=== PATIENT | male | born 1995 | race Caucasian/White ===

== ENCOUNTER 2025-05-16 15:45 | Emergency (ER) | payer BC, SELFPAY ==
[2025-05-16 15:51] VITALS: BP 132/80; PULSE 89; TEMP 36.9; O2SAT 98; BMI 30.8
--- NOTE | 2025-05-16 16:28 | PC.NURSE ---
area cleansed and PA at bedside for assessment
--- NOTE | 2025-05-16 16:30 | XR_ITS ---
[facility] [place] [id number] Patient Name: KARMA BATES MRN: [id number] date: 1995 Sex: M Assigned Patient Location: ER Current Patient Location: ER Accession/Order Number: [id number] Exam Date: 05/16/2025 16:42 Report Date: 05/16/2025 17:10 At the request of: KJ CHEN Procedure: XR tibia fibula RT 2V XR tibia fibula RT 2V 05/16/2025 4:58 PM SIGNS AND SYMPTOMS: ^Laceration, eval for foreign o ^Y PROTOCOL: Frontal and lateral radiographs of the right tibia and fibula COMPARISON: None FINDINGS: There is a soft tissue defect along the medial aspect of the right lower leg adjacent to the mid shaft of the tibia. No fracture. No abnormal radiopaque foreign body. The visualized right knee and right ankle are intact. XR/XR tibia fibula RT 2V IMPRESSION: There is a soft tissue defect along the medial aspect of the right lower leg adjacent to the mid shaft of the tibia. No fracture. No abnormal radiopaque foreign body. Impression dictated by: Deejay Medina M.D. 05/16/2025 5:10 PM Dictation Location: [place] [id number] Electronically authenticated by: [id number] Y Date: 05/16/2025 17:10
[2025-05-16] MEDS: LIDOCAINE HCL 1% 100 MG/10 ML MDV INJ (16:41)
[2025-05-16] MEDS: DIPHTH,PERTUSS(ACELL),TET VAC 0.5 ML SYRINGE IM (16:41)
--- NOTE | 2025-05-16 16:45 | ED_ITS ---
HPI HPI - General Adult General Chief complaint: Wound/Laceration Stated complaint: LACERATION ON R CALF Time Seen by Provider: 05/16/25 16:26 Source: patient Mode of arrival: walk-in Limitations: no limitations History of Present Illness HPI narrative: Patient is a 29-year-old male that presented to the emergency department with complaints of laceration to the medial side of his right lower extremity/calf after he was using a sledgehammer to break up a toilet to easily remove it from his basement. On arrival he states the bleeding has been controlled. He is not up-to-date on his tetanus. He did not have any pain with ambulation. Related Data Previous Rx's ?Medication ?Instructions ?Recorded cephalexin 500 mg capsule 500 mg PO BID 7 days #14 cap s 05/16/25 Allergies Allergy/AdvReac Type Severity Reaction Status Date / Time No Known Drug Allergies Allergy Verified 05/16/25 15:50 Opioid HPI Opioid Management Most Recent Opioid Data: Last Pain Scale 2 Today, 15:51 Review of Systems ROS Status of ROS 10 or more systems reviewed and unremark able except as noted in history and below PFSH PFSH Social History Little interest or pleasure in doing things: not at all Feeling down, depressed, or hopeless: not at all Exam Narrative Exam Narrative: General: No distress, age-appropriate Skin: Warm, dry, no pallor. No rash. 2.5 cm laceration to the medial aspect of over the right lower leg Head: Normocephalic, atraumatic. Neck: Supple, non-tender. Eye: Pupils are equal, round and EOMI. No scleral icterus. Ears, Nose, Mouth, and Throat: No nasal mucosal hypertrophy. Oral mucosa is moist, no posterior oropharynx erythema, uvula is mid-line Cardiovascular: Regular Rate and Rhythm without murmur, gallop or rub. Respiratory: No accessory muscle use or respiratory distress. Chest Wall: no tenderness Back: No midline thoracic or lumbar vertebral tenderness. Musculoskeletal: Full ROM of all extremities, no calf or popliteal tenderness. Right lower extremity medial side midway down the lower leg there is approximate ly 2.5 cm laceration, wound is hemostatic. Neurological: A&O x4. No cranial nerve dysfunction observed. No truncal ataxia. Moves all extremities. Sensation intact. Psychiatric: Cooperative and interactive. Normal mood and affect. Constitutional Vital Signs, click to edit/add: Last Vital Signs Temp 98.4 F 05/16/25 15:51 Pulse 89 05/16/25 15:51 Resp 20 05/16/25 15:51 BP 132/80 05/16/25 15:51 Pulse Ox 98 05/16/25 15:51 Documenting provider has reviewed patient's vital signs: yes Course Vital Signs Vital signs: Vital Signs Temperature 98.4 F 05/16/25 15:51 Pulse Rate 89 05/16/25 15:51 Respiratory Rate 20 05/16/25 15:51 Blood Pressure 132/80 05/16/25 15:51 Pulse Oximetry 98 05/16/25 15:51 Temperature 98.4 F 05/16/25 15:51 Pulse Rate 89 05/16/25 15:51 Respiratory Rate 05/16/25 15:51 Blood Pressure 132/80 05/16/25 15:51 Pulse Oximetry 98 05/16/25 15:51 Medical Decision Making MDM Narrative Medical decision making narrative: Patient is a 29-year-old male that presented to the emergency department with a 2.5 cm laceration to the medial right lower leg. Steady nonantalgic gait on arrival. The laceration came from a piece of toilet that he was disassembling with a sledgehammer and the piece flew and hit his leg. On exam patient is in no distress, there is some mild venous oozing on exam. No gross contamination on inspection of the wound. The wound is approximately 2.5 cm and will require a multilayer layer repair. Subcutaneous fat observed in the wound, no foreign objects. X-ray right tib-fib ordered and reviewed and interpreted by myself as negative for radiopaque objects. No fracture. Wound thoroughly cleansed and irrigated and repaired with 3?0 Vicryl for the subcutaneous layer and 3-0 Prolene for the superficial layer. See procedure note. Tetanus was updated as patient could not remember the last time he had a booster. I did discuss activity modification given the location of the wound to prevent dehiscence. Patient sits for the most part at his job. Patient given wound care instructions and return precautions. a dressing was placed on the wound. I did discharge patient with a course of Keflex x 7 days and instructions to follow-up with his primary care provider for removal of sutures in 10 to 14 days. Differential Diagnosis Differential Diagnosis: Leg laceration, foreign body Imaging Data Right Tib-Fib Xray: Attestation: I have reviewed the pertinent imaging results. Radiologist's impression: ITS Impressions Tibia/Fibula X-Ray 05/16/25 16:30 IMPRESSION: There is a soft tissue defect along the medial aspect of the right lower leg adjacent to the mid shaft of the tibia. No fracture. No abnormal radiopaque foreign body. Impression dictated by: Deejay Medina M.D. 05/16/2025 5:10 PM Dictation Location: [place] [address] Electronically authenticated by: [id number] Y Date: 05/16/2025 17:10 Discharge Plan Discharge Chief Complaint: Wound/Laceration Clinical Impression: Laceration Patient Disposition: Home, Self-Care Time of Disposition Decision: 17:42 Condition: Good Mode of Transportation: Private Vehicle Prescriptions / Home Meds: New cephalexin 500 mg capsule 500 mg PO BID 7 Days Qty: 14 0RF Print Language: [place] Instructions: Care For Your Stitches (ED), Stitches Removal (ED) Additional Instructions: Have sutures removed in 10 to 14 days by your primary care provider. Finish all antibiotics even if wound is healed. Return to the emergency department if you experience any fever, night sweats, chills, increased redness around wound, infected appearing drainage that is thick, wang/brown and foul-smelling. Also return to the emergency department if you experience any new or worsening symptoms. Referrals: Brionna Choudhury APRN [Primary Care Provider] - 1 week Referral Note: Call for suture removal in 10-14 days Discharge Date/Time: 05/16/25 18:02 Procedures ED Laceration Laceration Laceration 1: Site: lower extremity Side (if applicable): right Size (cm): 2.5 Description: linear Depth: simple, single layer (Complex repair given the tension of the skin at this location, 3 Vicryl 3-0 sutures used to close subcutaneous layer for support, 7 3-0 Prolene sutures used for superficial closure) Anesthetic used: lidocaine 1% Anesthesia technique: local infiltration Amount (ml): 8 Pre-repair: wound explored and irrigated extensively Skin layer closed with: other (Prolene) Size (cm): 3-0 Number of sutures: 7 Technique: simple, interrupted Subcutaneous layer closed with: Vicryl Size: 3-0 Number of sutures: 3 Technique: simple, interrupted
== END 2025-05-16 18:02 | disposition home or self-care (01) ==
PROVIDERS: Emergency Provider Emergency Medicine; PCP Nurse Practitioner Family
DX: S81.811A Laceration without foreign body, right lower leg, initial encounter (principal); W26.8XXA Contact with other sharp object(s), not elsewhere classified, initial encounter; Y93.89 Activity, other specified; Y92.002 Bathroom of unspecified non-institutional (private) residence as the place of occurrence of the external cause; Z23 Encounter for immunization
CPT/HCPCS: 12031; 73590; 90471; 90715; 99283